=== PATIENT | male | born 1995 | race Caucasian/White ===

== ENCOUNTER 2018-04-02 21:35 | Emergency (ER) | payer MEDICAID ==
[~2018-04-02] VITALS: Ht 165.1 cm; Wt 74.0 kg
[2018-04-02 21:49] VITALS: BP 158/102
== END 2018-04-02 23:15 | disposition home or self-care (01) ==
LOC: ER 23:05
DX: T16.1XXA Foreign body in right ear, initial encounter (principal); X58.XXXA Exposure to other specified factors, initial encounter; Y93.89 Activity, other specified; Y92.89 Other specified places as the place of occurrence of the external cause; H90.5 Unspecified sensorineural hearing loss; R03.0 Elevated blood-pressure reading, without diagnosis of hypertension; H54.7 Unspecified visual loss; E11.9 Type 2 diabetes mellitus without complications
CPT/HCPCS: 69200; 99284; Z7610